=== PATIENT | female | born 1990 | race Caucasian/White ===

== ENCOUNTER → 2020-09-28 | Outpatient (CLI) | payer OTHER ==
[~2020-09-28] MED LIST: PHENERGAN SUPP25 MG; ZOFRAN4 MG
== END ==
LOC: SLEEP 19:45
PROVIDERS: ATTEND Internal Medicine
DX: Z01.812 Encounter for preprocedural laboratory examination (principal); Z20.822 Contact with and (suspected) exposure to COVID-19; G47.33 Obstructive sleep apnea (adult) (pediatric)
CPT/HCPCS: 95810; U0002

== ENCOUNTER → 2021-03-06 | Outpatient (CLI) | payer OTHER | LOC: SLEEP 19:42 | PROVIDERS: ATTEND Internal Medicine | DX: G47.33 Obstructive sleep apnea (adult) (pediatric) (principal) | CPT/HCPCS: 95811 ==